=== PATIENT | female | born 1960 | race Caucasian/White ===

== ENCOUNTER → 2019-05-21 | Outpatient (CLI) | payer OTHER ==
--- NOTE | 2019-05-21 17:25 | RADIOLOGY IMAGING REPORT ---
FACILITY: [facility] - [place] PATIENT NAME: Renetta Nails : 1960 MR: [id number] V: [id number] EXAM DATE: ORDERING PHYSICIAN: MAXIMO CORREA TECHNOLOGIST: Location: [facility] [place] Patient: Renetta Nails : 1960 Visit/Account:[id number] Date of Sevice: 05/21/2019 [facility] [place] TRANVAGINAL NON-OB HISTORY: Postmenopausal bleeding. TECHNIQUE: Transvaginal ultrasound pelvis. COMPARISON: None. FINDINGS: Uterus: Lobulated and enlarged for the postmenopausal state; 7.9 cm length x 5.4 cm AP x 6.3 cm trans verse. Myometrium: Heterogeneous with several discrete fibroids, each abutting and displacing the endometriu m suggesting submucosal positioning. Posterior body/fundus 2.2 cm. Anterior body/fundus 3.7 cm. Endometrium: Difficult to well visualize and the long axis plane secondary to myomatous change but po tentially thickened; double thickness 6-12 mm. Potential 1.3 cm endometrial polyp at fundus. Cervix: Several small nabothian cysts. Ovaries: Right - 1.2 x 1.6 x 2.6 cm and unremarkable. Left - 2.2 x 2.5 x 3.2 cm including a simple and benign appearing 2.0 cm cyst. Blood flow is documented in each ovary by duplex Doppler ultrasound. Adnexa: Grossly unremarkable. Free pelvic fluid: None. IMPRESSION: 1. Moderately myomatous uterus including several submucosal fibroids, the largest detailed above. 2. Potential 1.3 cm endometrial polyp at fundus. 3. Limited assessment of the endometrium secondary to myomatous change but with at least mild diffuse endometrial thickening. Although most likely hyperplasia, this is nonspecific and tissue sampling or continued ultrasound follow-up should be considered. 4. Benign-appearing 2 cm cyst left ovary. Report Dictated By: Alek Arita MD at 05/21/2019 5:10 PM Report E-Signed By: Alek Arita MD at 05/21/2019 5:19 PM WSN:[id number]
== END ==
LOC: RAD 11:03
PROVIDERS: ATTEND Obstetrics & Gynecology
DX: Z02.9 Encounter for administrative examinations, unspecified (principal)